=== PATIENT | female | born 1940 | race Caucasian/White ===

== ENCOUNTER 2019-05-17 05:09 | Inpatient (IN) ==
--- NOTE | 2019-04-18 14:53 | PAT Medication Instructions ---
Medication Instructions Date of Service April 18, 2019 Home Medications B-complex with vitamin C [Super B Complex-Vitamin C] 1 - 2 tab PO DAILY cholecalciferol (vitamin D3) [Vitamin D3] 5,000 unit PO DAILY ibuprofen 400 mg PO UD PRN ASK your surgeon for instructions ibuprofen 400 mg PO UD PRN DO NOT take the morning of surgery B-complex with vitamin C [Super B Complex-Vitamin C] 1 - 2 tab PO DAILY cholecalciferol (vitamin D3) [Vitamin D3] 5,000 unit PO DAILY Other Notes If you have any questions please call us at [phone] or [phone] or [phone] or [phone]
--- NOTE | 2019-04-19 13:36 | Anesthesiology Consultation ---
Date of Service April 19, 2019 Assessment & Plan (1) Encounter for pre-operative examination: Chart Review Chart Review: Acceptable Risk for Surgery and Patient seen in Pre Admission Testing Teaching & Discussion Pre-Anesthesia Teaching/Discussion Notes: Instructed NPO after midnight before surgery,except medications with 15 cc of water. Medication instructions provided according to the PAT guidelines. History Surgery Operation Date: 05/17/19 07:00 Proposed Procedures p Left Total Knee Arthroplasty - Wisam Echevarria MD Height/Weight Height: 5 ft Weight: 80.7 kg Allergies Allergy/AdvReac Type Severity Reaction Status Date / Time prednisone Allergy hives Verified 04/20/19 14:47 Medications Home Medications Medication Instructions Recorded Confirmed Last Taken B-complex with vitamin C [Super B 1 - 2 tab PO DAILY 04/12/19 04/20/19 Unknown Complex-Vitamin C] cholecalciferol (vitamin D3) 5,000 unit PO DAILY 04/12/19 04/20/19 Unknown [Vitamin D3] ibuprofen 400 mg PO UD PRN 04/12/19 04/20/19 Unknown Past Medical History Medical History Arthritis Nodular thyroid disease 4 nodules under surveillance by endocrine Obesity Exercise / Class Metabolic Activity III < 4 Walking/Shop/Light housework Past Family History Family History Mother Family history of bone cancer Aunt Family history of bone cancer Grandmother Family history of brain cancer Grandmother Family history of breast cancer Past Surgical History Surgical History History of colonoscopy History of dilation and curettage History of tonsillectomy History of total right knee replacement Past Anesthesia History No Hx of Anesthesia Complications and No Family Hx of Anesthesia Complications History of PONV No Hx of PONV and No Hx of Motion Sickness Social History Smoking Status: Never smoker Do You Dip or Chew Tobacco: No Hx Alcohol Use: No substance use type: does not use Review of Systems Patient denies chest pain, shortness of breath, reflux, cough, wheezing, palpitations. Physical Exam Vital Signs VITALS BP 153/77 (per patient, systolic BP typically in 140 range) P 72 TEMP 97.7 SP02 95%RA RESP 16 PHYSICAL Full neck and c-spine range of motion. Full TMJ range of motion. TMD 3 finger breaths Mallampati Score 3 Dentition: upper full dentures, lower partial Lungs: clear throughout to auscultation Cardiac: regular rate and rhythm, no murmurs noted Spine: normal Carotid arteries: negative bruit Extremities: no edema Testing Laboratory Results 04/19/19 14:11 04/19/19 14:11 PT 10.3 Seconds (9.0-12.0) 04/19/19 14:11 INR 1.0 (0.9-1.1) 04/19/19 14:11 APTT 27.2 Seconds (21.0-31.0) 04/19/19 14:11 Urine Color Yellow 04/19/19 14:11 Urine Appearance Clear (Clear) 04/19/19 14:11 Urine pH 5.0 (4.5-7.5) 04/19/19 14:11 Ur Specific [place] 1.015 (1.000-1.030) 04/19/19 14:11 Urine Protein Negative (Negative) 04/19/19 14:11 Urine Glucose (UA) Negative (Negative) 04/19/19 14:11 Urine Ketones Negative (Negative) 04/19/19 14:11 Urine Nitrite Negative (Negative) 04/19/19 14:11 Ur Leukocyte Esterase Negative (Negative) 04/19/19 14:11 Blood Type AB Negative 04/19/19 14:11 Antibody Screen NEGATIVE 04/19/19 14:11 04/19/19 14:11 Urine Culture - Final Urine,Clean Catch More than three types of organisms present, all moderate counts mixed probable skin zuleyma. No further identifications or sensitivities to follow. Electrocardiogram Date: 04/19/19 Findings: + NSR @ (68) Chest X-Ray Date: 04/19/19 Findings: + NAD The cardiac silhouette is top normal in size. There is a mildly tortuous thoracic aorta. Mild diffuse interstitial thickening. Likely chronic. No acute process within the chest.
--- NOTE | 2019-04-19 14:39 | XRay Report ---
XR chest Pre-admission PA/Lat HISTORY: Preop. COMPARISON: None. FINDINGS: The cardiac silhouette is top normal in size. There is a mildly tortuous thoracic aorta. De generative changes are noted within the thoracic spine. No pneumothorax. No pleural effusions. No foc al lung consolidations to suggest pneumonia. No evidence for pulmonary edema. Mild diffuse interstiti al thickening. Likely chronic. IMPRESSION: No acute process within the chest. Mild diffuse interstitial thickening which is likely chronic. Electronically signed by: Hussein Garg M.D. 04/19/2019 2:37 PM
[2019-04-19 15:54] LABS: Appearance Urine Clear (Clear); Basophils # (auto) 0.02 K/uL (0-0.2); Basophils % (auto) 0.4 %; Bilirubin Urine Negative (Negative); Blood Urine Negative (Negative); Color Urine Yellow; Eosinophils # (auto) 0.18 K/uL (0-0.5); Eosinophils % (auto) 3.2 %; Glucose Urine UA Negative (Negative); Hemoglobin 15.1 g/dL (12.0-16.0); Immature Granulocytes # (auto) 0.01 K/uL (0.00-0.02); Immature Granulocytes % (auto) 0.2 %; Ketones Urine Negative (Negative); Leukocyte Esterase Urine Negative (Negative); Lymphocytes # (auto) 1.56 K/uL (1.2-3.4); Lymphocytes % (auto) 27.5 %; Mean Corpuscular Hemoglobin 29.4 pg (25-34); Mean Corpuscular Hgb Conc 34.3 g/dL (32-36); Mean Corpuscular Volume 85.8 fL (80-100); Mean Platelet Volume 9.6 fL (7.4-10.4); Monocytes # (auto) 0.29 K/uL (0.11-0.59); Monocytes % (auto) 5.1 %; Neutrophils # (auto) 3.62 K/uL (1.4-6.5); Neutrophils % (auto) 63.6 %; Nitrite Urine Negative (Negative); Platelet Count 190 K/uL (130-400); Protein Urine Negative (Negative); RDW Coefficient of Variation 13.9 % (11.5-14.5); RDW Standard Deviation 43.2 fL (36.4-46.3); Red Blood Count 5.13 M/uL (4.2-5.4); Specific Gravity Urine 1.015 (1.000-1.030); Urobilinogen Urine Negative (Negative); White Blood Count 5.68 K/uL (4.8-10.8)
[2019-04-19 16:15] LABS: Partial Thromboplastin Time 27.2 Seconds (21.0-31.0); Prothrombin Time 10.3 Seconds (9.0-12.0)
[2019-04-19 16:16] LABS: BUN Creatinine Ratio 28.6 (10-20); Calcium 9.3 mg/dl (8.5-10.1); Creatinine Clr Calc Pharmacy 51.5 ml/min; Est GFR (African American) 78.3; Est GFR (Non-African American) 67.6; Potassium 4.2 mmol/L (3.5-5.1)
--- NOTE | 2019-04-20 12:17 | History & Physical Report ---
Date of Service April 20, 2019 Assessment & Plan (1) Primary osteoarthritis of left knee: Patient has significant left knee osteoarthritis. She has failed conservative therapy as above. She would like to proceed with surgical intervention. Treatment options were dsicussed. Risks, benefits and alternatives to surgery including but not limited to infection, DVT, pain, stiffness, need for revision surgery, damage to blood vessels, damage to nerves, PE, , were discussed with the patient and they wish to proceed. Plan will be for left total knee arthroplasty. She likely will want to return home with home health PT upon discharge from hospital but does live alone. States she lives at [place]. Plan will be for aspirin 81mg BID x 30 days post operatively for DVT prophylaxis. She will follow up post operatively. All questions answered. DOS 05/17/19 at [facility]. History of Present Illness Chief Complaint: Left knee pain Primary Care Provider: Wander Herrera MD Patient is an 78 year old female with no significant past medical history. She has ongoing left knee pain and osteoarthritis for several yeras. She notes difficulty with normal daily activity due to the pain. She has previously had right knee replacement and done well with this. Has tried NSAIDs without meaningful relief, states injections have not worked for her in the past. She would like to proceed with left knee replacement. Patient denies headaches, sweats, fevers, chills, double vision, blurred vision, cough, sore throat, dysphagia, chest pain, sob, wheezing, n/v/d/c, numbness, tingling, fatigue, urinary symptoms, mood disorders. ROS positive for Left knee pain and stiffness. Allergies Allergy/AdvReac Type Severity Reaction Status Date / Time No Known Allergies Allergy Verified 04/12/19 10:40 Home Medications Home Medications Medication Instructions Recorded Confirmed Type B-complex with vitamin C [Super B 1 - 2 tab PO DAILY 04/12/19 04/12/19 History Complex-Vitamin C] cholecalciferol (vitamin D3) 5,000 unit PO DAILY 04/12/19 04/12/19 History [Vitamin D3] ibuprofen 400 mg PO UD PRN 04/12/19 04/12/19 History Past Med/Surg History Medical History Arthritis Nodular thyroid disease 4 nodules under surveillance by endocrine Obesity Surgical History History of colonoscopy History of dilation and curettage History of tonsillectomy History of total right knee replacement Family History Mother Family history of bone cancer Aunt Family history of bone cancer Grandmother Family history of brain cancer Grandmother Family history of breast cancer Social History Preferred Language: Serbian Communication Ability: Effective Wicker Worker Required: No Beliefs That Will Affect Care: Rastafarian Rastafarian Beliefs: JUDAISM Current Living Situation: Alone Current Living Situation Comment: [place] Other Information That Helps Us Care for You: Yes (PREFERS PT IN HOME) Feels Safe at Home: Yes Smoking Status: Never smoker Do You Dip or Chew Tobacco: No ; Hx Alcohol Use: No Review of Systems All systems reviewed & are unremarkable except as noted in HPI & below Physical Exam Constitutional: well developed and well nourished; no acute distress Eyes: PERRL, conjunctivae normal, anicteric sclerae ENMT: external ear and nose normal, oropharynx normal Neck: trachea midline, no thyromegaly Respiratory: normal respiratory effort, lungs clear to auscultation Cardiovascular: RRR, no murmur, no edema Musculoskeletal: Left knee: Mild effusion, ROM 2-110 degrees with crepitus, positive Tess's, tenderness lateral joint line, valgus deformity Skin: no rashes, warm and dry Neurologic: patellar DTR's 2+ bilat, sensation intact Psychiatric: A+Ox3, euthymic affect Results & Data Laboratory Results Lab Results 04/19/19 04/19/19 04/19/19 Range/Units 14:11 14:11 14:11 WBC 5.68 (4.8-10.8) K/uL RBC 5.13 (4.2-5.4) M/uL Hgb 15.1 (12.0-16.0) g/dL Hct 44.0 (37-47) % MCV 85.8 (80-100) fL MCH 29.4 (25-34) pg MCHC 34.3 (32-36) g/dL RDW Std Deviation 43.2 (36.4-46.3) fL RDW Coeff of Anisa 13.9 (11.5-14.5) % Plt Count 190 (130-400) K/uL MPV 9.6 (7.4-10.4) fL Immature Gran % (Auto) 0.2 % Neut % (Auto) 63.6 % Lymph % (Auto) 27.5 % [place] % (Auto) 5.1 % Eos % (Auto) 3.2 % Baso % (Auto) 0.4 % Immature Gran # (Auto) 0.01 (0.00-0.02) K/uL Neut # (Auto) 3.62 (1.4-6.5) K/uL Lymph # (Auto) 1.56 (1.2-3.4) K/uL [place] # (Auto) 0.29 (0.11-0.59) K/uL Eos # (Auto) 0.18 (0-0.5) K/uL Baso # (Auto) 0.02 (0-0.2) K/uL PT 10.3 (9.0-12.0) Seconds INR 1.0 (0.9-1.1) APTT 27.2 (21.0-31.0) Seconds PTT Ratio 1.0 Sodium 138 (136-145) mmol/L Potassium 4.2 (3.5-5.1) mmol/L Chloride 106 (98-107) mmol/L Carbon Dioxide 27 (21-32) mmol/L Anion Gap 5.0 (3-11) BUN 23 H (7-18) mg/dl Creatinine 0.82 (0.6-1.2) mg/dl Est Cr Clr Drug Dosing 51.5 ml/min Est GFR ( Amer) 78.3 Est GFR (Non-Af Amer) 67.6 BUN/Creatinine Ratio 28.6 H (10-20) Glucose 101 H (70-99) mg/dl Calcium 9.3 (8.5-10.1) mg/dl Urine Color Urine Appearance (Clear) Urine pH (4.5-7.5) Ur Specific [place] (1.000-1.030) Urine Protein (Negative) Urine Glucose (UA) (Negative) Urine Ketones (Negative) Urine Blood (Negative) Urine Nitrite (Negative) Urine Bilirubin (Negative) Urine Urobilinogen (Negative) Ur Leukocyte Esterase (Negative) Blood Type Antibody Screen 04/19/19 04/19/19 Range/Units 14:11 14:11 WBC (4.8-10.8) K/uL RBC (4.2-5.4) M/uL Hgb (12.0-16.0) g/dL Hct (37-47) % MCV (80-100) fL MCH (25-34) pg MCHC (32-36) g/dL RDW Std Deviation (36.4-46.3) fL RDW Coeff of Anisa (11.5-14.5) % Plt Count (130-400) K/uL MPV (7.4-10.4) fL Immature Gran % (Auto) % Neut % (Auto) % Lymph % (Auto) % [place] % (Auto) % Eos % (Auto) % Baso % (Auto) % Immature Gran # (Auto) (0.00-0.02) K/uL Neut # (Auto) (1.4-6.5) K/uL Lymph # (Auto) (1.2-3.4) K/uL [place] # (Auto) (0.11-0.59) K/uL Eos # (Auto) (0-0.5) K/uL Baso # (Auto) (0-0.2) K/uL PT (9.0-12.0) Seconds INR (0.9-1.1) APTT (21.0-31.0) Seconds PTT Ratio Sodium (136-145) mmol/L Potassium (3.5-5.1) mmol/L Chloride (98-107) mmol/L Carbon Dioxide (21-32) mmol/L Anion Gap (3-11) BUN (7-18) mg/dl Creatinine (0.6-1.2) mg/dl Est Cr Clr Drug Dosing ml/min Est GFR ( Amer) Est GFR (Non-Af Amer) BUN/Creatinine Ratio (10-20) Glucose (70-99) mg/dl Calcium (8.5-10.1) mg/dl Urine Color Yellow Urine Appearance Clear (Clear) Urine pH 5.0 (4.5-7.5) Ur Specific [place] 1.015 (1.000-1.030) Urine Protein Negative (Negative) Urine Glucose (UA) Negative (Negative) Urine Ketones Negative (Negative) Urine Blood Negative (Negative) Urine Nitrite Negative (Negative) Urine Bilirubin Negative (Negative) Urine Urobilinogen Negative (Negative) Ur Leukocyte Esterase Negative (Negative) Blood Type AB Negative Antibody Screen NEGATIVE Diagnostic Findings Left knee-Tricompartmental arthritis with [id number] lateral compartment, osteophyte formation lateral femoral condyle, lateral tibial plateau, medial femoral condyle and medial tibial plateau. She is also [id number] PF joint.
[~2019-05-17 05:09] MED LIST: MISSING PHYSICIAN SIGNATURE ON ORDER SCH; VANCOMYCIN HCL 1,000 MG in SODIUM CHLORIDE 0.9% 250 ML IV SCH
[2019-05-17] MEDS ORDERED: GABAPENTIN 300 MG CAP PO SCH (06:00)
[2019-05-17] MEDS ORDERED: TRANEXAMIC ACID 1,000 MG **IV Pre-op IV SCH (06:00)
[2019-05-17] MEDS ORDERED: ACETAMINOPHEN 500 MG TAB PO SCH (06:00)
[2019-05-17] MEDS ORDERED: LR 500ML BOLUS, THEN 15ML/HR IV SCH (06:00)
[2019-05-17] MEDS ORDERED: ROPIVACAINE 0.5% HCL/PF 150 MG, BUPIVACAINE 0.5% MPF 30 ML, EPINEPHrine 30MG/30ML (OR U... INSTIL SCH (06:00)
[2019-05-17] MEDS ORDERED: dexAMETHasone 4 MG TAB PO SCH (06:00)
[2019-05-17] MEDS ORDERED: VANCOMYCIN HCL 1,250 MG in SODIUM CHLORIDE 0.9% 250 ML IV SCH ×2 (06:00→18:00)
[2019-05-17] MEDS ORDERED: CeleBREX 200 MG CAP PO SCH (06:00)
[2019-05-17] MEDS ORDERED: FAMOTIDINE 20 MG TAB PO SCH (06:00)
[2019-05-17] MEDS ORDERED: METOCLOPRAMIDE HCL 10 MG TABLET PO SCH (06:00)
[2019-05-17] MEDS ORDERED: ORTHO JOINT ANESTHETIC ONE (06:28)
[2019-05-17] MEDS ORDERED: BACITRACIN INJ 50,000 UNIT VIAL ONE (06:29)
[2019-05-17] MEDS ORDERED: BUPIVACAINE 0.25% 30 ML VIAL ONE (06:29)
[2019-05-17] MEDS ORDERED: BUPIVACAINE 0.5 % 5 MG/1 ML PF 10ML VIAL ONE (06:29)
[2019-05-17] MEDS ORDERED: TRANEXAMIC ACID 1,000 MG **IV Intra-op IV SCH (06:30)
--- NOTE | 2019-05-17 06:44 | History & Physical Bridge Note ---
Date of Service May 17, 2019 History & Physical Bridge Note I have examined the patient, reviewed the History & Physical and in the interval since the performance of the History & Physical I have noted the following changes of clinical significance: no changes noted
[2019-05-17] MEDS ORDERED: MIDAZOLAM HCL 1 MG/ML 2ML VIAL ONE ×2 (06:45)
[2019-05-17] MEDS ORDERED: ePHEDrine sulfate 50 MG/ML AMP IV PRN (07:15)
[2019-05-17] MEDS ORDERED: ATROPINE SULFATE 0.1 MG/ML 10ML SYR IV PRN (07:15)
[2019-05-17] MEDS ORDERED: fentaNYL citrate 100 MCG/2 ML VIAL IV PRN (07:15)
[2019-05-17] MEDS ORDERED: ONDANSETRON INJ 2 MG/ML 2 ML VIAL IV PRN ×2 (07:15→11:06)
--- NOTE | 2019-05-17 08:56 | Operative Report ---
Post Operative Report Pre & Post Diagnosis Operation Date: 05/17/19 07:00 Pre-Op Diagnosis: LEFT KNEE OSTEOARTHRITIS Post-Op Diagnosis: LEFT KNEE OSTEOARTHRITIS Procedure Operation Date: 05/17/19 07:00 Actual Procedures p Left Total Knee Arthroplasty(Left) - Wisam Echevarria MD Surgeon Wisam Echevarria MD Cloth Picker Mikael Helms PA-C Estimated Blood Loss 20 Findings Consistent with Post-Op Diagnosis Specimens bone and tissue Drains 2 Hemovac Anesthesia Type Spinal MAC Complications none Disposition Accompanied Patient To Recovery: No Disposition: Recovery Room Indications The patient is an 78-year-old female long-standing arthritic change in the left knee. She has a fairly significant preoperative valgus deformity. She is failed conservative measures. She was to proceed with left total knee arthroplasty Description of Procedure Risks benefits and alternatives of surgery including but not limited to infection, DVT, pain, stiffness, need for surgery, damage to blood vessels, damage to nerves or risks of anesthesia were discussed with the patient and they wished to proceed. The patient was identified and the laterality was confirmed and marked. They received a preoperative antibiotic as well as a spinal anesthetic and an abductor canal block. A well-padded tourniquet was applied and then the limb was prepped and draped in standard manner with ChloraPrep. The limb was exsanguinated and the tourniquet was inflated. I made a standard anterior incision. I sharply incised the skin then utilized Bovie electrocautery to achieve hemostasis. I made a medial parapatellar arthrotomy and mobilized the patella laterally. I then excised the anterior horns of the medial and lateral meniscus as well as the infrapatellar fat pad. I elevated a portion of the MCL off of the tibia. I then pinned into place a patient-matched distal femoral cutting guide and made my distal femoral resection. I then pinned into place the 5 in 1 femoral cutting guide. I made my anterior, posterior and chamfer cuts. I then excised the cruciates and the remaining portions of the menisci. I then pinned into place a patient- matched tibial cutting guide and made my tibial resection. I then pinned into place the tibial plate a utilizing alignment vadim to confirm rotation. I then cut for the post. Utilizing a lamina lead section supervisor and I then removed posterior osteophytes off the femur. I then placed a trial femur into position and cut for the trochlear component. I then sequentially trialed to size the polyethylene. She had a preoperative valgus deformity of 13 degrees. She has significant laxity to the MCL secondary to this. I was not able to get appropriate stability to the MCL by upsizing the poly-. She started to get into a flexion contracture. I therefore switched to using a constrained liner. This gave us good stability. I then prepared the patella with a freehand cut utilizing sagittal saw. I sized and drilled for the patella. There was some lateral tracking to the patella. A lateral release was required. She had good patella tracking once this was performed. All the trial components were removed. The deep tissues were anesthetized with an ortho mix solution. Then with Simplex HV with gentamicin cement, I cemented my definitive components. Definitive components, Belcher and Nephew Tommie 2: Femur 4 Tibia 2 Poly 12 constrained Patella 29 oval A betadine soak was performed. A deep drain was placed. The arthrotomy was closed with interrupted #1 Vicryl suture subcutaneous tissue was closed with interrupted 2-0 Vicryl suture. The skin was closed with with francis. An Acticoat and Richard dressing were placed. Sterile dressings were applied. All needle and sponge counts were correct at the end of the procedure patient was transferred to the PACU in stable condition without apparent complication. The PA-C was necessary for assistance with procedure for assistance in positioning, prepping, draping, retraction and closure. I attest to the content of the Intraoperative Record and any orders documented therein. Any exceptions are noted below.
[2019-05-17] MEDS ORDERED: PROPOFOL IV EMULSION 10 MG/ML 20 ML VIAL IV ONE (09:43)
[2019-05-17] MEDS ORDERED: LIDOCAINE HCL 2% 2 ML VIAL/AMP(20MG/ML) INFIL ONE (09:43)
[2019-05-17] MEDS ORDERED: ONDANSETRON INJ 2 MG/ML 2 ML VIAL ONE (09:43)
--- NOTE | 2019-05-17 10:12 | XRay Report ---
LEFT KNEE 2 VIEWS History: Left total knee arthroplasty. Degenerative arthritis. Postop. FINDINGS: The patient is status post a left total knee arthroplasty. The hardware is intact. No fract ure or dislocation. Skin francis and surgical drains are in place. IMPRESSION: Left total knee arthroplasty. No evidence for hardware complication. Electronically signed by: Hussein Garg M.D. 05/17/2019 10:10 AM
--- NOTE | 2019-05-17 10:40 | Anesthesiology Progress Note ---
Date of Service May 17, 2019 Anesthesia Post Procedure Vital Signs Vital Signs: Temp Pulse Pulse Resp BP Pulse Ox 05/17/19 10:30 36.3 C L 61 15 168/79 H 99 05/17/19 10:20 37.2 C 59 L 14 160/72 H 96 05/17/19 10:10 60 14 153/70 H 100 05/17/19 10:00 60 14 140/70 100 05/17/19 09:50 66 14 146/70 H 98 05/17/19 09:41 36.9 C 62 18 138/66 99 05/17/19 05:39 36.8 C 79 20 188/102 H 95 Pain Intensity Left Knee: Pain Intensity: 0 Transfer of Care Handoff Completed per policy Notes Mental Status: alert / awake / arousable and participated in evaluation Nausea / Vomiting: adequately controlled Pain: adequately controlled Airway Patency, RR, SpO2: stable & adequate BP & HR: stable & adequate Hydration State: stable & adequate Neuraxial Anesthesia: was administered and sensory block is resolving Anesthetic Complications: no major complications apparent and Pt Satisfied with anesthetic care
[2019-05-17] MEDS ORDERED: NALOXONE HCL 0.4 MG/1 ML VIAL/CARP IV PRN (11:06)
[2019-05-17] MEDS ORDERED: HYDROmorphone INJ 0.5 MG/0.5 ML SYR IV PRN (11:06)
[2019-05-17] MEDS ORDERED: METOCLOPRAMIDE HCL INJ 5 MG/ML 2 ML VIAL IV PRN (11:06)
[2019-05-17] MEDS ORDERED: MAGNESIUM HYDROXIDE SUSP 30 ML UDC PO PRN (11:06)
[2019-05-17] MEDS ORDERED: VANCOMYCIN CONSULT ACTIVE PRN (11:06)
[2019-05-17] MEDS ORDERED: BISACODYL 10 MG SUPP PR PRN (11:06)
[2019-05-17] MEDS: SODIUM CHLORIDE 0.9% 1000ML 1,000 ML IV SCH ×2 (11:50→22:37)
[2019-05-17] MEDS: ACETAMINOPHEN 500 MG TAB PO SCH ×2 (13:19→21:14)
[2019-05-17] MEDS: SENNA 8.6 MG TAB PO SCH (21:14)
[2019-05-17] MEDS: ASPIRIN 81 MG ECTAB PO SCH (21:14)
[2019-05-17] MEDS: DOCUSATE SODIUM 100 MG CAP PO SCH (21:14)
[2019-05-17] MEDS: CeleBREX 200 MG CAP PO SCH (21:14)
[2019-05-18] MEDS: ACETAMINOPHEN 500 MG TAB PO SCH ×3 (04:57→21:54)
[2019-05-18] MEDS: OXYCODONE HCL IR 5 MG TAB (IMMEDIATE RELEASE) PO PRN ×3 (04:59→20:29)
[2019-05-18 07:03] LABS: Hematocrit (blood only) 35.7 % (37-47); Hemoglobin 12.3 g/dL (12.0-16.0); Mean Corpuscular Hemoglobin 29.1 pg (25-34); Mean Corpuscular Hgb Conc 34.5 g/dL (32-36); Mean Corpuscular Volume 84.4 fL (80-100); Mean Platelet Volume 9.6 fL (7.4-10.4); Platelet Count 149 K/uL (130-400); RDW Coefficient of Variation 13.8 % (11.5-14.5); RDW Standard Deviation 42.3 fL (36.4-46.3); Red Blood Count 4.23 M/uL (4.2-5.4); White Blood Count 8.89 K/uL (4.8-10.8)
--- NOTE | 2019-05-18 07:20 | Orthopedic Progress Note ---
Date of Service May 18, 2019 Assessment & Plan (1) S/P total knee arthroplasty: POD#1 Left TKA -Pain management -DVT prophylaxis-SCD's, Aspirin 81mg BID -PT/OT -AM labs-hemoglobin 12.3, chemistries pending -D/C planning-home with home PT-patient lives at [facility] Patient resting in bed comfortably. She has no pain currently, controlled well with PO pain medication. Denies complaints. No chest pain, sob, dizziness, n/v. Review of Systems Review of Systems: All systems reviewed & are unremarkable except as noted in HPI & below Physical Exam Physical Exam: WN/WD, no acute distress. Dressing c/d/i, no calf tenderness. Hemovac in place and draining. Toes mobile. Good dorsiflexion. Results & Data Vital Signs (Past 12 Hours) Vital Signs Temp Pulse Pulse Resp BP BP Pulse Ox 05/18/19 06:14 69 171/83 H 05/18/19 04:34 171/72 H 180/81 H 05/18/19 03:59 37.0 C 63 16 174/76 H 96 05/17/19 22:59 158/73 H 05/17/19 22:58 36.5 C 75 18 181/84 H 94 05/17/19 19:43 37.4 C 70 16 168/84 H 94 Laboratory Results Lab Results 04/19/19 04/19/19 04/19/19 Range/Units 14:11 14:11 14:11 WBC 5.68 (4.8-10.8) K/uL RBC 5.13 (4.2-5.4) M/uL Hgb 15.1 (12.0-16.0) g/dL Hct 44.0 (37-47) % MCV 85.8 (80-100) fL MCH 29.4 (25-34) pg MCHC 34.3 (32-36) g/dL RDW Std Deviation 43.2 (36.4-46.3) fL RDW Coeff of Anisa 13.9 (11.5-14.5) % Plt Count 190 (130-400) K/uL MPV 9.6 (7.4-10.4) fL Immature Gran % (Auto) 0.2 % Neut % (Auto) 63.6 % Lymph % (Auto) 27.5 % [place] % (Auto) 5.1 % Eos % (Auto) 3.2 % Baso % (Auto) 0.4 % Immature Gran # (Auto) 0.01 (0.00-0.02) K/uL Neut # (Auto) 3.62 (1.4-6.5) K/uL Lymph # (Auto) 1.56 (1.2-3.4) K/uL [place] # (Auto) 0.29 (0.11-0.59) K/uL Eos # (Auto) 0.18 (0-0.5) K/uL Baso # (Auto) 0.02 (0-0.2) K/uL PT 10.3 (9.0-12.0) Seconds INR 1.0 (0.9-1.1) APTT 27.2 (21.0-31.0) Seconds PTT Ratio 1.0 Sodium 138 (136-145) mmol/L Potassium 4.2 (3.5-5.1) mmol/L Chloride 106 (98-107) mmol/L Carbon Dioxide 27 (21-32) mmol/L Anion Gap 5.0 (3-11) BUN 23 H (7-18) mg/dl Creatinine 0.82 (0.6-1.2) mg/dl Est Cr Clr Drug Dosing 51.5 ml/min Est GFR ( Amer) 78.3 Est GFR (Non-Af Amer) 67.6 BUN/Creatinine Ratio 28.6 H (10-20) Glucose 101 H (70-99) mg/dl Calcium 9.3 (8.5-10.1) mg/dl Urine Color Urine Appearance (Clear) Urine pH (4.5-7.5) Ur Specific [place] (1.000-1.030) Urine Protein (Negative) Urine Glucose (UA) (Negative) Urine Ketones (Negative) Urine Blood (Negative) Urine Nitrite (Negative) Urine Bilirubin (Negative) Urine Urobilinogen (Negative) Ur Leukocyte Esterase (Negative) Blood Type Antibody Screen 04/19/19 04/19/19 05/18/19 Range/Units 14:11 14:11 06:45 WBC 8.89 (4.8-10.8) K/uL RBC 4.23 (4.2-5.4) M/uL Hgb 12.3 (12.0-16.0) g/dL Hct 35.7 L (37-47) % MCV 84.4 (80-100) fL MCH 29.1 (25-34) pg MCHC 34.5 (32-36) g/dL RDW Std Deviation 42.3 (36.4-46.3) fL RDW Coeff of Anisa 13.8 (11.5-14.5) % Plt Count 149 (130-400) K/uL MPV 9.6 (7.4-10.4) fL Immature Gran % (Auto) % Neut % (Auto) % Lymph % (Auto) % [place] % (Auto) % Eos % (Auto) % Baso % (Auto) % Immature Gran # (Auto) (0.00-0.02) K/uL Neut # (Auto) (1.4-6.5) K/uL Lymph # (Auto) (1.2-3.4) K/uL [place] # (Auto) (0.11-0.59) K/uL Eos # (Auto) (0-0.5) K/uL Baso # (Auto) (0-0.2) K/uL PT (9.0-12.0) Seconds INR (0.9-1.1) APTT (21.0-31.0) Seconds PTT Ratio Sodium (136-145) mmol/L Potassium (3.5-5.1) mmol/L Chloride (98-107) mmol/L Carbon Dioxide (21-32) mmol/L Anion Gap (3-11) BUN (7-18) mg/dl Creatinine (0.6-1.2) mg/dl Est Cr Clr Drug Dosing ml/min Est GFR ( Amer) Est GFR (Non-Af Amer) BUN/Creatinine Ratio (10-20) Glucose (70-99) mg/dl Calcium (8.5-10.1) mg/dl Urine Color Yellow Urine Appearance Clear (Clear) Urine pH 5.0 (4.5-7.5) Ur Specific [place] 1.015 (1.000-1.030) Urine Protein Negative (Negative) Urine Glucose (UA) Negative (Negative) Urine Ketones Negative (Negative) Urine Blood Negative (Negative) Urine Nitrite Negative (Negative) Urine Bilirubin Negative (Negative) Urine Urobilinogen Negative (Negative) Ur Leukocyte Esterase Negative (Negative) Blood Type AB Negative Antibody Screen NEGATIVE (1) S/P total knee arthroplasty Laterality: left Qualified Code(s): Z96.652 - Presence of left artificial knee joint
[2019-05-18 07:40] LABS: BUN Creatinine Ratio 22.4 (10-20); Calcium 8.3 mg/dl (8.5-10.1); Creatinine Clr Calc Pharmacy 53.2 ml/min; Est GFR (African American) 81.9; Est GFR (Non-African American) 70.7; Potassium 3.7 mmol/L (3.5-5.1)
--- NOTE | 2019-05-18 08:09 | Anesthesiology Progress Note ---
Date of Service May 18, 2019 Anesthesia Post Procedure Vital Signs Vital Signs: Temp Pulse Pulse Pulse Resp BP BP 05/18/19 07:31 36.8 C 67 18 176/81 H 05/18/19 06:14 69 171/83 H 05/18/19 04:34 171/72 H 180/81 H 05/18/19 03:59 37.0 C 63 16 174/76 H 05/17/19 22:59 158/73 H 05/17/19 22:58 36.5 C 75 18 181/84 H 05/17/19 19:43 37.4 C 70 16 168/84 H 05/17/19 15:18 36.9 C 67 16 149/76 H 05/17/19 14:09 82 18 145/74 H 05/17/19 13:06 77 76 H 125/69 05/17/19 11:55 62 18 170/80 H 05/17/19 11:24 60 18 170/77 H 05/17/19 10:55 36.5 C 61 16 152/64 H 05/17/19 10:45 37.3 C 61 14 152/70 H 05/17/19 10:30 36.3 C L 61 15 168/79 H 05/17/19 10:20 37.2 C 59 L 14 160/72 H 05/17/19 10:10 60 14 153/70 H 05/17/19 10:00 60 14 140/70 05/17/19 09:50 66 14 146/70 H 05/17/19 09:41 36.9 C 62 18 138/66 Pulse Ox 05/18/19 07:31 95 05/18/19 06:14 05/18/19 04:34 05/18/19 03:59 96 05/17/19 22:59 05/17/19 22:58 94 05/17/19 19:43 94 05/17/19 15:18 95 05/17/19 14:09 95 05/17/19 13:06 92 05/17/19 11:55 99 05/17/19 11:24 99 05/17/19 10:55 92 05/17/19 10:45 99 05/17/19 10:30 99 05/17/19 10:20 96 05/17/19 10:10 100 05/17/19 10:00 100 05/17/19 09:50 98 05/17/19 09:41 99 Pain Intensity Left Knee: Pain Intensity: 0 Notes Mental Status: alert / awake / arousable and participated in evaluation Patient Amnestic to Procedure: Yes Nausea / Vomiting: adequately controlled Pain: adequately controlled Airway Patency, RR, SpO2: stable & adequate BP & HR: stable & adequate Hydration State: stable & adequate Neuraxial Anesthesia: was administered and sensory block resolved Anesthetic Complications: no major complications apparent and Pt Satisfied with anesthetic care
[2019-05-18] MEDS: MULTIVITAMIN TAB PO SCH (08:48)
[2019-05-18] MEDS: ASPIRIN 81 MG ECTAB PO SCH ×2 (08:49→20:28)
[2019-05-18] MEDS: DOCUSATE SODIUM 100 MG CAP PO SCH ×2 (08:49→20:28)
[2019-05-18] MEDS: CeleBREX 200 MG CAP PO SCH ×2 (08:49→20:27)
[2019-05-18] MEDS ORDERED: B COMPLEX WITH VITAMIN C PO SCH (09:00)
--- NOTE | 2019-05-18 16:13 | Hospitalist Consultation ---
Date of Consultation May 18, 2019 Assessment & Plan (1) S/P total knee arthroplasty: (2) Primary osteoarthritis of left knee: - S/p TKA left by Dr. Echevarria on 05/17/19, POD #1 - Pain management, bowel regimen and DVT ppx per the primary team - Continue PT/OT - Follow am cbc for monitoring hgb/hct, dropped from 15 to 12 after surgery. Acute blood loss anemia not causing sx. - Can continue tylenol for pain prn, discussed that this is available OTC. Pt reports she does not want/need oxycodone on d/c as she rarely uses it now. (3) HTN (hypertension): - Will start on hydralazine 10 mg Q6H PO. Also have hydralazine 10 mg IV Q1H prn with parameters. Start PO dose now. - Not on meds prior to her admission for hypertension but has been consistentlyelevated during her stay. Pt notes at home is always 145-150 systolically. Pt is currently agreeable to trying BP meds. She does not prefer to be on medication manager intermediate. Would recommend weight loss and exercise prior to discharge to help improve overall health and improve BP. - Place on HH diet - 2D echo to r/o other causes of HTN (4) DVT prophylaxis: - asa 81 mg BID, teds, ambulatory with assistance Dispo: From home, possible d/c within 1 day per primary team. Thank you for involving us in the care of Mrs. Smith. Please do not hesitate to call with questions or concerns. Medicine will follow along. Supervising Physician Co-Signing Physician Notes I agree with exam, assessment and plan. History of Present Illness Reason for Consultation: Medical management, HTN Requesting Physician: Dr. Echevarria Attending Physician: Wisam Echevarria MD History of Present Illness This is an 78 yo F with PMHx of osteoarthritis, nodular thyroid disease, and obesity who presents for elective Left total knee arthroplasty on 05/17/[address] Echevarria. She has been doing well although has had consistently elevated BPs since being admitted. She is not on any antihypertensive medication prior to this visit and states her BP typically runs SBP = 145-150 all the time. She follows with a PCP as outpatient and states "Different providers have different guidelines for high blood pressure". Pt notes she would be agreeable to trying BP medication for a short time frame, but does not want to be on it long-term. She reports her pain has been minimal to none, and is using tylenol around the clock, and an occasional oxycodone. She asks if tylenol needs to be picked up at a pharmacy, because she does not have any at home. We discussed using this for pain relieve and that its available over the counter. She worked with PT earlier today and did well. She is anticipating going home tomorrow. Allergies Allergy/AdvReac Type Severity Reaction Status Date / Time clindamycin Allergy Verified 05/17/19 05:51 prednisone Allergy hives Verified 05/17/19 05:51 Home Medications Home Medications Medication Instructions Recorded Confirmed Type B-complex with vitamin C [Super B 1 - 2 tab PO DAILY 04/12/19 05/17/19 History Complex-Vitamin C] ibuprofen 400 mg PO UD PRN 04/12/19 05/17/19 History Patient History Medical History Arthritis Nodular thyroid disease 4 nodules under surveillance by endocrine Obesity Surgical History History of colonoscopy History of dilation and curettage History of tonsillectomy History of total right knee replacement Family History Mother Family history of bone cancer Aunt Family history of bone cancer Grandmother Family history of brain cancer Grandmother Family history of breast cancer Social History Preferred Language: Sinhala Communication Ability: Effective 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 Beliefs That Will Affect Care: Druze Druze Beliefs: SCIENTOLOGY marital status: / Current Living Situation: Alone Current Living Situation Comment: [place] Other Information That Helps Us Care for You: Yes (PREFERS PT IN HOME) Feels Safe at Home: Yes Smoking Status: Never smoker Do You Dip or Chew Tobacco: No ; Hx Alcohol Use: No Hx Substance Use: No Dental Care, Regularly: Yes Physical Activity Frequency: 3-4 Times per Week Review of Systems Review of Systems: Constitutional: No fever, sweats or chills Eyes: No diplopia, no worsening or blurred vision ENT: normal hearing, no trouble swallowing Respiratory: No cough, sputum, dyspnea at rest or on exertion Cardiovascular: No chest pain, tightness or palpitations Abdomen: No pain, nausea, vomiting, diarrhea or constipation Musculoskeletal: No joint pain, calf pain, swelling Neurologic: No weakness, numbness/tingling, or balance problems Psychiatric: No anxiety or depression Skin: No rash or itch Physical Exam Physical Exam: General: awake, alert, no apparent distress, + obese Head: Normocephalic, atraumatic ENT: PERRL, EOMI, no pharyngeal exudate, mucous membranes moist Chest: Clear to auscultation, on room air, no adventitious breath sounds Cardiac: Regular rate and rhythm, no murmur, no JVD, normal peripheral pulses, good capillary refill Abdominal: NABS x 4 quadrants, soft, nontender to palpation, no rebound, guarding or tenderness Extremities: LLE wrapped in MARIAH, bandage c/d/i, + hemovac drain in place, otherwise normal inspection, no peripheral edema or erythema, calfs nontender to palpation Psych: Normal mood and affect Neuro: AAO x 3, no gross motor deficits, speech is clear, no peripheral sensory deficits Results & Data Vital Signs (Past 12 Hours) Vital Signs Temp Pulse Resp BP BP Pulse Ox 05/18/19 15:35 36.3 C L 71 16 200/80 H 195/78 H 97 05/18/19 12:00 36.8 C 72 16 165/98 H 94 05/18/19 07:31 36.8 C 67 18 176/81 H 95 05/18/19 06:14 69 171/83 H 05/18/19 04:34 171/72 H 180/81 H PG Care Time/CCT Total # of Minutes Spent Total Time Spent with Patient: Total time spent is greater than 50% in coordination of care (as documented) at patient's floor/unit and/or counseling patient: (1) S/P total knee arthroplasty Laterality: left Qualified Code(s): Z96.652 - Presence of left artificial knee joint
[2019-05-18] MEDS: HydrALAZINE 10 MG TAB PO SCH ×2 (16:54→23:27)
[2019-05-18] MEDS: HydrALAZINE HCL 20 MG/ML VIAL IV PRN ×2 (20:25→21:53)
[2019-05-18] MEDS: SENNA 8.6 MG TAB PO SCH (20:27)
[2019-05-19] MEDS: HydrALAZINE HCL 20 MG/ML VIAL IV PRN ×2 (04:38→06:36)
[2019-05-19] MEDS: HydrALAZINE 10 MG TAB PO SCH (05:13)
[2019-05-19] MEDS: ACETAMINOPHEN 500 MG TAB PO SCH ×2 (05:13→13:34)
--- NOTE | 2019-05-19 08:09 | Orthopedic Progress Note ---
Date of Service May 19, 2019 Assessment & Plan (1) S/P total knee arthroplasty: POD#2 Left TKA -Pain management -DVT prophylaxis-SCD's, Aspirin 81mg BID -PT/OT -D/C planning-home with home PT-patient lives at [place]. Possibly home nursing for a few weeks. Patient will need to follow up with PCP for BP evaluation. Subjective No complaints with the knee. She has no pain currently, controlled well with PO pain medication. Denies complaints. No chest pain, sob, dizziness, n/v. Concerned of elevated BP. If she was able to be discharged today, she would like to have home nursing come in to keep an eye on her blood pressure before seeing her PCP. Physical Exam Constitutional: WD/WN, vitals as above (much improved BP at 0650) Musculoskeletal: Knee: + surgical incision (left knee: ALESHA dressing in place and functioning. ); knee normal to inspection, no deformity, no skin erythema, no ecchymosis and no surgical drain present (hemovac has been removed and dressing is C/D/I) Psychiatric: A+Ox3, euthymic affect Results & Data Vital Signs (Past 12 Hours) Vital Signs Temp Pulse Pulse Pulse Resp BP BP 05/19/19 06:50 36.9 C 83 16 134/69 05/19/19 06:23 60 184/82 H 05/19/19 05:02 206/80 H 05/19/19 04:35 72 194/81 H 05/18/19 23:15 37.0 C 80 16 156/60 H 05/18/19 22:07 37 C 79 18 166/68 H 05/18/19 21:43 83 194/80 H 05/18/19 21:20 204/78 H 05/18/19 20:13 193/78 H Pulse Ox 05/19/19 06:50 96 05/19/19 06:23 05/19/19 05:02 05/19/19 04:35 05/18/19 23:15 94 05/18/19 22:07 94 05/18/19 21:43 05/18/19 21:20 05/18/19 20:13 (1) S/P total knee arthroplasty Laterality: left Qualified Code(s): Z96.652 - Presence of left artificial knee joint
[2019-05-19] MEDS: DOCUSATE SODIUM 100 MG CAP PO SCH (08:23)
[2019-05-19] MEDS: CeleBREX 200 MG CAP PO SCH (08:23)
[2019-05-19] MEDS: ASPIRIN 81 MG ECTAB PO SCH (08:23)
[2019-05-19] MEDS: MULTIVITAMIN TAB PO SCH (08:23)
[2019-05-19] MEDS ORDERED: AMLODIPINE BESYLATE 5 MG TAB PO ONE (11:34)
--- NOTE | 2019-05-19 11:35 | Hospitalist Progress Note ---
Date of Service May 19, 2019 Assessment & Plan (1) S/P total knee arthroplasty: Postoperative management as per orthopedics Aspirin 81 twice daily for DVT prophylaxis Pain control with oxycodone and Celebrex Plan for home today (2) Primary osteoarthritis of left knee: - S/p TKA left by Dr. Echevarria on 05/17/19, POD #2 (3) HTN (hypertension): Blood pressures greater than 200 systolic at times, requiring IV and p.o. hydralazine as needed -Has a history of hypertension at home but not treated with medication. -Advised amlodipine 5 mg p.o. once daily-given the first dose prior to discharge and then will continue at home -She will keep track of her blood pressures at home daily and follow-up with her primary care physician within 1 week. - No need for echocardiogram at this point-she has no murmur, renal function is normal, no evidence of heart failure or angina-I have canceled the echocardiogram test that was ordered yesterday (4) DVT prophylaxis: - asa 81 mg BID, teds, ambulatory with assistance Dispo: From home, Stable for discharge to home from a medical standpoint as long his blood pressures do not become significantly elevated again later today prior to discharge Subjective Patient doing very well today other than her blood pressure being severely elevated this morning. Her pain in the knee is improved, denies headache or lightheadedness, denies chest pain or shortness breath, denies nausea or abdominal pain. No numbness or tingling anywhere. Her blood pressures were 206 systolic this morning and came down with IV hydralazine and p.o. hydralazine. She reports she does not normally have high blood pressures and is surprised by this. She is willing to take blood pressure medication at least temporarily after discharge. Review of Systems Review of Systems: All systems reviewed & are unremarkable except as noted in HPI & below Physical Exam Constitutional: WD/WN, vitals as above Eyes: PERRL, conjunctivae normal, anicteric sclerae ENMT: external ear and nose normal, oropharynx normal Neck: trachea midline, no thyromegaly Respiratory: normal respiratory effort, lungs clear to auscultation Cardiovascular: RRR, no murmur, no edema Gastrointestinal (Abdomen): normal bowel sounds, soft, nontender, no hepatosplenomegaly Musculoskeletal: Extremities: + extremities abnormal to inspection (Left knee with dressing in place), no cyanosis and no clubbing Skin: no rashes, warm and dry Neurologic: moves all extremities and awake; no focal motor deficits Psychiatric: A+Ox3, euthymic affect Results & Data Vital Signs (Past 12 Hours) Vital Signs Temp Pulse Pulse Pulse Pulse Resp BP 05/19/19 09:51 36.9 C 83 75 60 83 16 134/69 05/19/19 06:50 36.9 C 83 16 134/69 05/19/19 06:23 60 05/19/19 05:02 206/80 H 05/19/19 04:35 72 BP Pulse Ox 05/19/19 09:51 96 05/19/19 06:50 96 05/19/19 06:23 184/82 H 05/19/19 05:02 05/19/19 04:35 194/81 H Laboratory Results No new labs PG Care Time/CCT Total # of Minutes Spent Total Time Spent with Patient: Total time spent is greater than 50% in coordination of care (as documented) at patient's floor/unit and/or counseling patient: (1) S/P total knee arthroplasty Laterality: left Qualified Code(s): Z96.652 - Presence of left artificial knee joint
[2019-05-19] MEDS: OXYCODONE HCL IR 5 MG TAB (IMMEDIATE RELEASE) PO PRN (13:35)
--- NOTE | 2019-05-19 18:50 | Discharge Summary ---
Date of Service May 19, 2019 Admission HPI Per Admitting Provider Patient is an 78 year old female with no significant past medical history. She has ongoing left knee pain and osteoarthritis for several yeras. She notes difficulty with normal daily activity due to the pain. She has previously had right knee replacement and done well with this. Has tried NSAIDs without meaningful relief, states injections have not worked for her in the past. She would like to proceed with left knee replacement. Patient denies headaches, sweats, fevers, chills, double vision, blurred vision, cough, sore throat, dysphagia, chest pain, sob, wheezing, n/v/d/c, numbness, tingling, fatigue, urinary symptoms, mood disorders. ROS positive for Left knee pain and stiffness. Admission Exam Per Admitting Provider Constitutional: well developed and well nourished; no acute distress Eyes: PERRL, conjunctivae normal, anicteric sclerae ENMT: external ear and nose normal, oropharynx normal Neck: trachea midline, no thyromegaly Respiratory: normal respiratory effort, lungs clear to auscultation Cardiovascular: RRR, no murmur, no edema Musculoskeletal: Left knee: Mild effusion, ROM 2-110 degrees with crepitus, positive Tess's, tenderness lateral joint line, valgus deformity Skin: no rashes, warm and dry Neurologic: patellar DTR's 2+ bilat, sensation intact Psychiatric: A+Ox3, euthymic affect Principal Diagnosis Left knee osteoarthritis, hypertension Discharge Exam Constitutional well developed and well nourished; no acute distress Eyes PERRL, conjunctivae normal, anicteric sclerae ENMT external ear and nose normal, oropharynx normal Neck trachea midline, no thyromegaly Respiratory normal respiratory effort, lungs clear to auscultation Cardiovascular RRR, no murmur, no edema Skin no rashes, warm and dry Neurologic patellar DTR's 2+ bilat, sensation intact Psychiatric A+Ox3, euthymic affect Discharge Data Allergies Allergy/AdvReac Type Severity Reaction Status Date / Time clindamycin Allergy Verified 05/17/19 05:51 prednisone Allergy hives Verified 05/17/19 05:51 Consultations 05/17/19 11:06 Consult Case Management - Discharge Planning Routine 05/18/19 15:54 Consult Hospitalist Routine Procedures Performed Operation Date: 05/17/19 07:00 Actual Procedures p Left Total Knee Arthroplasty(Left) - Wisam Echevarria MD Ordered Studies 05/17/19 05:00 US - OR guided needle placemen Routine Hospital Course (1) S/P total knee arthroplasty: Patient presented for same day admission following Left total knee arthroplasty on 05/17/19. She tolerated procedure well.. Post-operatively, her activity was progressed and well tolerated. On POD#1 patient's blood pressure was noted to be significantly elevated. Dr. Temo Patiño of medicine service was consulted for medical management. They participated in PT with ambulation distance of 175 feet. ROM of operative knee reached 80 degrees. Labs remained stable- lowest hemoglobin recorded: 12.3. Pain controlled on oral medications. Please refer to daily progress notes and PT notes for complete details. After exam on 05/19/19, patient was felt to be stable for discharge home with plans on home health PT. She was started on amlodipine and will follow up with her PCP in regards to her blood pressure. Patient will f/u in the office in about 2 weeks for further evaluation including x-rays and incision check, sooner if having any issues or concerns. Lab Results 04/19/19 04/19/19 04/19/19 Range/Units 14:11 14:11 14:11 WBC 5.68 (4.8-10.8) K/uL RBC 5.13 (4.2-5.4) M/uL Hgb 15.1 (12.0-16.0) g/dL Hct 44.0 (37-47) % MCV 85.8 (80-100) fL MCH 29.4 (25-34) pg MCHC 34.3 (32-36) g/dL RDW Std Deviation 43.2 (36.4-46.3) fL RDW Coeff of Anisa 13.9 (11.5-14.5) % Plt Count 190 (130-400) K/uL MPV 9.6 (7.4-10.4) fL Immature Gran % (Auto) 0.2 % Neut % (Auto) 63.6 % Lymph % (Auto) 27.5 % Bullock % (Auto) 5.1 % Eos % (Auto) 3.2 % Baso % (Auto) 0.4 % Immature Gran # (Auto) 0.01 (0.00-0.02) K/uL Neut # (Auto) 3.62 (1.4-6.5) K/uL Lymph # (Auto) 1.56 (1.2-3.4) K/uL Bullock # (Auto) 0.29 (0.11-0.59) K/uL Eos # (Auto) 0.18 (0-0.5) K/uL Baso # (Auto) 0.02 (0-0.2) K/uL PT 10.3 (9.0-12.0) Seconds INR 1.0 (0.9-1.1) APTT 27.2 (21.0-31.0) Seconds PTT Ratio 1.0 Sodium 138 (136-145) mmol/L Potassium 4.2 (3.5-5.1) mmol/L Chloride 106 (98-107) mmol/L Carbon Dioxide 27 (21-32) mmol/L Anion Gap 5.0 (3-11) BUN 23 H (7-18) mg/dl Creatinine 0.82 (0.6-1.2) mg/dl Est Cr Clr Drug Dosing 51.5 ml/min Est GFR ( Amer) 78.3 Est GFR (Non-Af Amer) 67.6 BUN/Creatinine Ratio 28.6 H (10-20) Glucose 101 H (70-99) mg/dl Calcium 9.3 (8.5-10.1) mg/dl Urine Color Urine Appearance (Clear) Urine pH (4.5-7.5) Ur Specific [place] (1.000-1.030) Urine Protein (Negative) Urine Glucose (UA) (Negative) Urine Ketones (Negative) Urine Blood (Negative) Urine Nitrite (Negative) Urine Bilirubin (Negative) Urine Urobilinogen (Negative) Ur Leukocyte Esterase (Negative) Blood Type Antibody Screen 04/19/19 04/19/19 05/18/19 Range/Units 14:11 14:11 06:45 WBC 8.89 (4.8-10.8) K/uL RBC 4.23 (4.2-5.4) M/uL Hgb 12.3 (12.0-16.0) g/dL Hct 35.7 L (37-47) % MCV 84.4 (80-100) fL MCH 29.1 (25-34) pg MCHC 34.5 (32-36) g/dL RDW Std Deviation 42.3 (36.4-46.3) fL RDW Coeff of Anisa 13.8 (11.5-14.5) % Plt Count 149 (130-400) K/uL MPV 9.6 (7.4-10.4) fL Immature Gran % (Auto) % Neut % (Auto) % Lymph % (Auto) % Bullock % (Auto) % Eos % (Auto) % Baso % (Auto) % Immature Gran # (Auto) (0.00-0.02) K/uL Neut # (Auto) (1.4-6.5) K/uL Lymph # (Auto) (1.2-3.4) K/uL Bullock # (Auto) (0.11-0.59) K/uL Eos # (Auto) (0-0.5) K/uL Baso # (Auto) (0-0.2) K/uL PT (9.0-12.0) Seconds INR (0.9-1.1) APTT (21.0-31.0) Seconds PTT Ratio Sodium (136-145) mmol/L Potassium (3.5-5.1) mmol/L Chloride (98-107) mmol/L Carbon Dioxide (21-32) mmol/L Anion Gap (3-11) BUN (7-18) mg/dl Creatinine (0.6-1.2) mg/dl Est Cr Clr Drug Dosing ml/min Est GFR ( Amer) Est GFR (Non-Af Amer) BUN/Creatinine Ratio (10-20) Glucose (70-99) mg/dl Calcium (8.5-10.1) mg/dl Urine Color Yellow Urine Appearance Clear (Clear) Urine pH 5.0 (4.5-7.5) Ur Specific [place] 1.015 (1.000-1.030) Urine Protein Negative (Negative) Urine Glucose (UA) Negative (Negative) Urine Ketones Negative (Negative) Urine Blood Negative (Negative) Urine Nitrite Negative (Negative) Urine Bilirubin Negative (Negative) Urine Urobilinogen Negative (Negative) Ur Leukocyte Esterase Negative (Negative) Blood Type AB Negative Antibody Screen NEGATIVE 05/18/19 Range/Units 06:45 WBC (4.8-10.8) K/uL RBC (4.2-5.4) M/uL Hgb (12.0-16.0) g/dL Hct (37-47) % MCV (80-100) fL MCH (25-34) pg MCHC (32-36) g/dL RDW Std Deviation (36.4-46.3) fL RDW Coeff of Anisa (11.5-14.5) % Plt Count (130-400) K/uL MPV (7.4-10.4) fL Immature Gran % (Auto) % Neut % (Auto) % Lymph % (Auto) % Bullock % (Auto) % Eos % (Auto) % Baso % (Auto) % Immature Gran # (Auto) (0.00-0.02) K/uL Neut # (Auto) (1.4-6.5) K/uL Lymph # (Auto) (1.2-3.4) K/uL [place] # (Auto) (0.11-0.59) K/uL Eos # (Auto) (0-0.5) K/uL Baso # (Auto) (0-0.2) K/uL PT (9.0-12.0) Seconds INR (0.9-1.1) APTT (21.0-31.0) Seconds PTT Ratio Sodium 141 (136-145) mmol/L Potassium 3.7 (3.5-5.1) mmol/L Chloride 111 H (98-107) mmol/L Carbon Dioxide 24 (21-32) mmol/L Anion Gap 6.0 (3-11) BUN 18 (7-18) mg/dl Creatinine 0.79 (0.6-1.2) mg/dl Est Cr Clr Drug Dosing 53.2 ml/min Est GFR ( Amer) 81.9 Est GFR (Non-Af Amer) 70.7 BUN/Creatinine Ratio 22.4 H (10-20) Glucose 139 H (70-99) mg/dl Calcium 8.3 L (8.5-10.1) mg/dl Urine Color Urine Appearance (Clear) Urine pH (4.5-7.5) Ur Specific [place] (1.000-1.030) Urine Protein (Negative) Urine Glucose (UA) (Negative) Urine Ketones (Negative) Urine Blood (Negative) Urine Nitrite (Negative) Urine Bilirubin (Negative) Urine Urobilinogen (Negative) Ur Leukocyte Esterase (Negative) Blood Type Antibody Screen Total Time Total Time Spent Total Time Spent (In Minutes): 20 Discharge Plan Discharge Items Patient Disposition: Home - Home Health Services Reason For Visit: LEFT KNEE OSTEOARTHRITIS Discharge Diagnosis: left knee osteoarthritis Discharge Goals: Decrease discomfort and Improve function Activity: Per 'Additional Instructions' section Weightbearing: Left weightbearing Weightbearing Comment: as tolerated Non-emergency contact: Surgeon Call non-emergency contact if: your pain is not controlled, your pain is worsening and your temperature is above 101.5 Follow-up/Referrals: Wander Herrera MD [Primary Care Provider] - (Please follow-up with your family physician within 1 week after discharge for follow-up and your blood pressure.) Diet: Regular Addtl Provider Instructions: ACTIVITY RECOMMENDATIONS: SELF CARE INSTRUCTIONS AFTER TOTAL KNEE REPLACEMENT A. You may need to continue a physical therapy program after discharge from the hospital. There are several options available to you. Your doctor will assist you in selecting the best one for you. 1. An out-patient facility 3 times a week for therapy. 2. Home therapy for 1 to 2 weeks with outpatient therapy to follow. 3. Continue working on all exercises taught by physical therapy three times a day for 20 minutes on non-therapy days. Your goals should be to increase the bending of your knee to 90 degrees and beyond and to fully straighten your knee. Ice and elevate knee after exercise. B. Weight as tolerated with a walker or as instructed by your physician. C. It is okay to shower if minimal to no drainage from incision. No Baths. Do not soak wound. D. Make walking a part of your daily routine. Be up as much as comfortable with rest periods throughout the day. Rest with leg elevation is very important. Use the ice wrap frequently for the first 3-4 weeks. E. There are no restrictions on activities. You may ride in a car, shop, participate in supervisory civil engineer and all social activities. F. Wear the long elastic stockings (TIMOTOE hose) 20 hours a day for one month after surgery. They can be removed several times a day for laundering and when showering. G. ALESHA dressing: You have a ALESHA dressing on your surgical wound. It will remain in place for 7 days from surgery. You will be provided with a booklet with the do's and don'ts with the dressing in place. After 7 days, the dressing may be removed. If there is drainage from the surgical incision, you may cover the wound with dry dressings SPECIAL CARE INSTRUCTIONS: VERY IMPORTANT TO READ AND REVIEW A. Take Aspirin (blood thinning medications) as directed by your doctor. If on Coumadin, have a pro-time (blood test) drawn according to your doctor's instructions. This will tell the doctor how well the Coumadin is thinning your blood. B. There are a few signs you need to watch for after you are home. Call [facility] if you notice any of the followin. Increased severe knee pain. Some pain is expected especially when you exercise. 2. Increased swelling in your leg or knee; pain or swelling of the calf muscle in either lower leg. 3. Any redness or fluid drainage from the incision. 4. Shortness of breath or chest pain. 5. A Temperature of 101.5 degrees F or greater. C. Please call [facility] at if you have any concerns or questions about your operation or recovery. The doctor or his nurse will return your call promptly. D. You must take antibiotics before dental work, bladder, bowel or other surgery. Your doctor will provide you with a permanent care to carry describing this precaution. FOLLOW UP VISIT: If appointment is not already scheduled: Please call [facility] to make a follow-up appointment for 2 weeks after your surgery at . As for your severely elevated blood pressure, you were started on a new medication called amlodipine 5 mg by mouth once daily in the morning. Please continue on this medication daily and check your blood pressures at rest daily and keep a log book for your doctor. Your doctor can decide if you need to continue on the medication after you recover from your knee surgery or if you need should discontinue the medication. Please follow-up with your primary care physician within 1 week after discharge. Prescriptions: New celecoxib [Celebrex] 200 mg Capsule 200 mg PO BID Qty: 60 RF: 0 aspirin [Ecotrin Low Strength] 81 mg Tablet,Delayed Release (Dr/Ec) 81 mg PO BID Qty: 60 RF: 0 acetaminophen [Tylenol Extra Strength] 500 mg Tablet 1,000 mg PO Q8 Qty: 100 RF: 0 oxycodone 5 mg Tablet 5 - 10 mg PO Q4H PRN (Reason: pain) Qty: 30 RF: 0 amlodipine [Norvasc] 5 mg Tablet 5 mg PO QAM Qty: 30 RF: 0 Continued B-complex with vitamin C [Super B Complex-Vitamin C] Tablet 1 - 2 tab PO DAILY RF: 0 Discontinued ibuprofen 400 mg Tablet 400 mg PO UD PRN (Reason: Pain) RF: 0 Stand-Alone Forms: [facility] Discharge Orders: Discharge Order (Routine); Ordered 05/19/19 Ordered By: Alvaro Leach Admission Data Admit Date/Time: 05/17/19 09:50 Attending Provider: Wisam Echevarria Admit Provider: Wisam Echevarria Primary Care Provider: Wander Herrera Other Providers: Nancy Scherer Service: Surgical Services Other Interventions: Discharge Summary Assessment (RN) Last Done: 05/19/19 09:51 DC Date/Time DO NOT enter until pt leaves facility: 05/19/19 17:01
[2019-05-20] MEDS ORDERED: AMLODIPINE BESYLATE 5 MG TAB PO SCH (09:00)
== END 2019-05-19 17:01 | disposition home health service (06) | DRG 470 ==
LOC: ASU 05:09 → 3E 09:50
DX: I10 Essential (primary) hypertension; E66.9 Obesity, unspecified; Z96.651 Presence of right artificial knee joint; M17.12 Unilateral primary osteoarthritis, left knee